=== PATIENT | male | born 1975 ===

== ENCOUNTER 2024-04-29 07:31 | Outpatient (RCR) | payer BC, SELFPAY | END 2024-04-29 23:59 | disposition home or self-care (01) | LOC: RPT 07:31 | PROVIDERS: ATTENDING PHYSICIAN Family Medicine | DX: M25.511 Pain in right shoulder (principal); Z73.6 Limitation of activities due to disability | CPT/HCPCS: 97110; 97112; 97162 ==

== ENCOUNTER 2024-06-02 16:41 | Outpatient (RCR) | payer BC, SELFPAY | END 2024-06-02 23:59 | disposition home or self-care (01) | LOC: ROT 16:41 | PROVIDERS: ATTENDING PHYSICIAN Family Medicine | DX: M25.531 Pain in right wrist (principal); Z73.6 Limitation of activities due to disability | CPT/HCPCS: 97018; 97110; 97112; 97166; 97535 ==

== ENCOUNTER 2024-06-30 15:56 | Outpatient (RCR) | payer BC, SELFPAY | END 2024-06-30 23:59 | disposition home or self-care (01) | LOC: ROT 15:56 | PROVIDERS: ATTENDING PHYSICIAN Family Medicine | DX: M25.531 Pain in right wrist (principal); Z73.6 Limitation of activities due to disability | CPT/HCPCS: 97018; 97110; 97112 ==

== ENCOUNTER 2024-07-16 15:50 | Outpatient (RCR) | payer BC, SELFPAY | END 2024-08-03 07:20 | disposition home or self-care (01) | LOC: ROT 15:50 | PROVIDERS: ATTENDING PHYSICIAN Family Medicine | DX: M25.531 Pain in right wrist (principal); Z73.6 Limitation of activities due to disability | CPT/HCPCS: 97018; 97110 ==

== ENCOUNTER 2025-04-19 06:25 | Day surgery (SDC) | payer BC, SELFPAY | END 2025-04-19 14:04 | disposition home or self-care (01) | LOC: GI 06:25 | PROVIDERS: ATTENDING PHYSICIAN Internal Medicine Gastroenterology | DX: Z12.11 Encounter for screening for malignant neoplasm of colon (principal); K64.8 Other hemorrhoids; Q43.8 Other specified congenital malformations of intestine | CPT/HCPCS: G0121 ==